=== PATIENT | male | born 1980 | race Caucasian/White ===

== ENCOUNTER 2021-08-04 10:46 | Emergency (ER) | payer BC ==
[~2021-08-04] VITALS: Ht 185.4 cm; Wt 77.1 kg
--- NOTE | 2021-08-04 11:03 | NUR ---
DR ANDREW AT BEDSIDE FOR EVAL.
--- NOTE | 2021-08-04 11:04 | NUR ---
Patient discharged to home in stable condition with brisk steady gait. Written and verbal after care instructions given to patient and family. Patient and spouse verbalized understanding and compliance of instructions. Stressed follow up with primary doctor with primary doctor and/or ENT doctor or return to ER for worsening s/s.
== END 2021-08-04 11:04 | disposition home or self-care (01) ==
LOC: ER 10:46
DX: T16.2XXA Foreign body in left ear, initial encounter (principal); X58.XXXA Exposure to other specified factors, initial encounter; Y92.89 Other specified places as the place of occurrence of the external cause
CPT/HCPCS: A4663